=== PATIENT | female | born 1955 | race African-American/Black ===

== ENCOUNTER 2022-09-20 12:20 | Outpatient (CLI) | payer MEDICAID, OTHER ==
[2022-09-20 13:23] LABS: Hemoglobin 12.2 g/dL (12.0-15.5); Mean Corpuscular HGB CONC 31.1 g/dL (32.0-36.0); Mean Corpuscular Hemoglobin 27.1 pg (27.0-33.0); Mean Corpuscular Volume 86.9 fl (81.6-98.3); Mean Platelet Volume 9.5 fl (7.4-10.4); Platelet Count 267 10x3/uL (150-450); Red Blood Cell (RBC) Count 4.51 10x6/uL (3.90-5.03); White Blood Cell (WBC) Count 8.4 10x3/uL (3.5-10.5)
[2022-09-20 13:38] LABS: Anion Gap 17 mmol/L (10-20); BUN (Urea Nitrogen) 15 mg/dL (9.8-20.1); Calc. Creatinine Clearance 0 mL/min (70-130); Calcium 10.5 mg/dL (7.8-10.44); Carbon Dioxide 24 mmol/L (23-31); Chloride 104 mmol/L (98-107); Estimated GFR 47; Glucose 150 mg/dL (80-115); Potassium 4.2 mmol/L (3.5-5.1); Sodium 141 mmol/L (136-145)
== END 2022-09-20 12:21 | disposition home or self-care (01) ==
LOC: CSHLAB 12:20
PROVIDERS: ATTEND Podiatrist Foot & Ankle Surgery
DX: Z01.812 Encounter for preprocedural laboratory examination (principal); T84.84XA Pain due to internal orthopedic prosthetic devices, implants and grafts, initial encounter
CPT/HCPCS: 80048; 85027

== ENCOUNTER 2022-10-05 09:46 | Day surgery (SDC) | payer OTHER, MEDICAID ==
[2022-10-04 14:58] VITALS: BMI 31.4
[2022-10-05] MEDS ORDERED: Neomycin-Polymyxin 1 ML AMP ONE (11:12)
[2022-10-05] MEDS ORDERED: Bupivacaine PF 0.5% 30 ML VIAL ONE (11:12)
[2022-10-05] MEDS ORDERED: PROPOFOL 20 ML ONE (11:59)
[2022-10-05] MEDS ORDERED: Midazolam HCl 2 mg/2 ml Vial ONE (11:59)
[2022-10-05] MEDS ORDERED: Fentanyl 100 MCG/2 ML VIAL ONE (11:59)
[2022-10-05] MEDS ORDERED: CEFAZOLIN 2 GM VIAL ONE (12:00)
[2022-10-05] MEDS ORDERED: Dexamethasone 4 mg/ml Vial ONE (12:00)
[2022-10-05] MEDS ORDERED: Ondansetron PF 4 MG/2 ML Vial ONE (12:00)
[2022-10-05] MEDS ORDERED: Lidocaine 1% PF 5 ML VIAL ONE (12:00)
[2022-10-05] MEDS ORDERED: PHENYLEPHRINE-NS 100 MCG/ML 10 ML SYRINGE ONE (12:19)
== END 2022-10-05 15:00 | disposition home or self-care (01) ==
LOC: CSHSDC 09:46
PROVIDERS: ATTEND Podiatrist Foot & Ankle Surgery
PROC: 0YP90YZ Removal of Other Device from Right Lower Extremity, Open Approach (ICD-10-PCS; principal; 2022-10-05)
DX: T84.498D Other mechanical complication of other internal orthopedic devices, implants and grafts, subsequent encounter (principal); M10.00 Idiopathic gout, unspecified site; E78.2 Mixed hyperlipidemia; R73.03 Prediabetes; I13.0 Hypertensive heart and chronic kidney disease with heart failure and stage 1 through stage 4 chronic kidney disease, or unspecified chronic kidney disease; I50.30 Unspecified diastolic (congestive) heart failure; N18.30 Chronic kidney disease, stage 3 unspecified; D63.8 Anemia in other chronic diseases classified elsewhere; I25.10 Atherosclerotic heart disease of native coronary artery without angina pectoris; E78.5 Hyperlipidemia, unspecified; J45.909 Unspecified asthma, uncomplicated; Z79.82 Long term (current) use of aspirin; Z79.02 Long term (current) use of antithrombotics/antiplatelets; Z79.899 Other long term (current) drug therapy; Y83.1 Surgical operation with implant of artificial internal device as the cause of abnormal reaction of the patient, or of later complication, without mention of misadventure at the time of the procedure; Z87.891 Personal history of nicotine dependence
CPT/HCPCS: J1100; J2250; J2405; J2704; J3010; S0020